=== PATIENT | female | born 1995 | race Caucasian/White ===

== ENCOUNTER 2017-12-06 10:29 | Emergency (ER) | payer OTHER ==
[~2017-12-06] VITALS: Ht 160 cm; Wt 90.5 kg
[~2017-12-06 10:29] MED LIST: PREN-61 PO
[2017-12-06] MEDS ORDERED: IBUPROFEN 800 MG TABLET PO ONE (11:45)
[2017-12-06] MEDS ORDERED: GuaiFENesin/D-METHORPHAN [SUGAR-FREE] 200-20MG/10 ML SYRUP UDCUP PO ONE (11:45)
[2017-12-06 12:13] VITALS: BP 127/79
== END 2017-12-06 12:18 | disposition home or self-care (01) ==
LOC: EMS 10:29
DX: K52.9 Noninfective gastroenteritis and colitis, unspecified (principal); J02.9 Acute pharyngitis, unspecified; F12.90 Cannabis use, unspecified, uncomplicated; Z88.2 Allergy status to sulfonamides; Z88.5 Allergy status to narcotic agent
CPT/HCPCS: 99283